=== PATIENT | male | born 1980 | race Caucasian/White ===

== ENCOUNTER 2020-03-12 08:59 | Emergency (ER) | payer SELFPAY ==
[2020-03-12 09:10] VITALS: BP 169/132; PULSE 90; RESP 18; TEMP 37; O2SAT 98; BMI 21.7
--- NOTE | 2020-03-12 09:18 | W.ED.SKABFB ---
HPI - Skin/Abscess/Foreign Bdy General: Chief complaint: Skin/Abscess/Foreign Body Stated complaint: insect bite above groin area/tenderness Time Seen by Provider: 03/12/20 09:10 History of Present Illness: HPI narrative: Patient is a 40-year-old male comes to the ED with possible abscess in groin area. Patient says it started on Thursday. Says it was a small red tender nodule that has become larger and more painful for the past couple days. Patient says he shaved his pubic hair recently. He is unsure what caused the problem. He thought it could be an ingrown hair and he was picking at it yesterday. Denies any dysuria, hematuria, penile lesions, penile discharge or STIs. Associated symptoms: Deny chills, fever(s), nausea or vomiting Review of Systems Const: Denies: fever(s), chills or fatigue Eyes: Denies: change in vision or eye discomfort ENMT: Denies: throat pain, odynophagia, nasal discharge or nasal congestion Card: Denies: chest pain, palpitations, edema, swelling of feet/ankles, dyspnea on exertion or orthopnea Resp: Denies: dyspnea, productive cough or non-productive cough GI: Denies: abdominal pain, nausea, vomiting, diarrhea, constipation or hematochezia : Denies: flank pain, difficulty urinating, dysuria or hematuria Musc: Denies: neck pain, back pain or extremity swelling Skin/Breast: Reports: new lesions; Denies: rash Neuro: Denies: headache(s), numbness in extremities or weakness in extremities Physical Exam Const: COMMON NORMALS: no acute distress, patient oriented x3 and alert GENERAL APPEARANCE: cooperative and comfortable HENMT: COMMON NORMALS: normocephalic HEAD & SCALP: normocephalic MOUTH: Normal oral and palatal mucosa present THROAT: posterior oropharynx normal and uvula midline Neck/C-Spine: COMMON NORMALS: supple GENERAL: Yes normal visual inspection Resp: COMMON NORMALS: normal respiratory effort, No retractions, No use of accessory muscles and clear to auscultation bilaterally AUSCULTATION: clear to auscultation bilaterally Cardio: COMMON NORMALS: regular rate, regular rhythm, S1 normal heart sound present, S2 normal heart sound present, No gallops present (Cardio), No clicks present (Cardio), No murmurs present (Cardio) and Peripheral pulses 2+ throughout RATE: regular rate RHYTHM: regular rhythm HEART SOUNDS: S1 normal heart sound present and S2 normal heart sound present PERIPHERAL PULSES: Peripheral pulses 2+ throughout GI: COMMON NORMALS: Normal to inspection, nondistended, normoactive bowel sounds present, Soft to palpation, non-tender and no masses PALPATION: Yes Soft to palpation : COMMON NORMALS: Yes no CVA tenderness BLADDER/KIDNEY EXAM: Yes no CVA tenderness Back/Pelvis: COMMON NORMALS: no CVA tenderness Neuro: COMMON NORMALS: patient oriented x3 and moves all extremities SENSORIUM/ORIENTATION: Yes alert Skin: LESIONS: lesion noted pelvis Lesion type: Yes nodule Lesion size (cm): 1 Lesion location: Central Lower pelvis, about 2cm superior of penis Lesion color: Yes red and Yes surrounding erythema Lesion consistency: Yes fluctuent, Yes firm and Yes indurated Lesion surface: Yes dry, Yes raised and Yes warm Lesion border: Yes surrounding erythema Lesion tenderness: Yes moderate Lesion finding consistent with: Yes other (findings consistent with abscess) Procedures Abscess I/D Site: abdomen (central Lower abdomen in pelvic region-just above penis ) Local Anesthetic: lidocaine 2% Amount of anesthesia used (mL): 10 Technique: incised with #11 blade Amount of fluid expressed (mL): 5 (Blood and purulent malodorous drainage) Packing used?: none Course Vital Signs: Vital signs: Vital Signs Temperature 98.6 F 03/12/20 09:10 Pulse Rate 90 03/12/20 09:10 Respiratory Rate 18 03/12/20 09:10 Blood Pressure 169/132 03/12/20 09:10 Pulse Oximetry 98 03/12/20 09:10 MDM - Skin/Abscess/Foreign Bdy MDM Narrative: Medical decision making narrative: Patient is a 40-year-old male who comes to the ED with an abscess in his lower pelvis. Abscess I&D was performed using local lidocaine 2% and an 11 blade. Approximately 5 mL of purulent malodorous drainage was removed. Patient was then put on a prescription for Bactrim. Patient discharged and told to follow-up with PCP in 7 to 10 days for reevaluation. Return to ED precautions given. Patient understood and agreed with plan. Discharge Plan Discharge Patient Disposition: Home Clinical Impression: Abscess Condition: Stable Prescriptions: New Bactrim DS 800-160 mg tablet 1 tab PO BID 7 Days Qty: 14 RF: 0 No Action Tylenol Extra Strength 500 mg Tablet 2,000 mg PO PRN RF: 0 Discharge Orders: Discharge ED (Routine); Ordered 03/12/20 Ordered By: Kamran Irizarry Referrals: Kamran Gillette MD [Primary Care Provider] - Discharge Diet: Regular Discharge Activity: Resume usual activity Patient Instructions: Abscess Incision and Drainage (ED), Abscess (ED) Activity Restrictions/Additional Instructions: Follow-up with medical provider as directed in 5 to 7 days for reevaluation. Take medications as prescribed. Return to the ER or your medical provider if condition worsens. Please read and understand discharge instructions. If any questions, please ask. Coding Level of Care Code ED Frame And Scrap Crusher for Thai Fwd Exam Comprehensive
[2020-03-12] MEDS: morphine 4 mg/mL SDV 1 mL IM (10:04)
[2020-03-12] MEDS: sulfamethoxazole-trimeth DS 160-800 mg Tablet 1 TAB PO (10:23)
== END 2020-03-12 10:22 | disposition home or self-care (01) ==
PROVIDERS: Emergency Provider Physician Assistant; PCP General Practice
DX: L02.818 Cutaneous abscess of other sites (principal)
CPT/HCPCS: 10060; 12345; 87070; 87075; 87077; 87186; 87205; 96372; 99281; 99283; J2270

== ENCOUNTER 2022-08-17 15:07 | Emergency (ER) | payer SELFPAY ==
--- NOTE | 2022-08-17 15:20 | XRR_ITS ---
PROCEDURE INFORMATION: Exam: XR Left Hand Exam date and time: 08/17/2022 3:36 PM Age: 42 years old Clinical indication: Injury or trauma; Other: Laceration from glass; Hand; Left; Additional info: Laceration to thumb TECHNIQUE: Imaging protocol: Radiologic exam of the left hand. Views: 3 or more views. COMPARISON: No relevant prior studies available. FINDINGS: Bones/joints: Normal. Soft tissues: No radiopaque foreign body. XR/XR hand LT min 3V* [id number] IMPRESSION: No radiopaque foreign body.
[2022-08-17 15:27] VITALS: BP 128/84; O2SAT 98
--- NOTE | 2022-08-17 15:31 | ED_ITS ---
HPI - Wound/Laceration General: Chief Complaint: Wound/Laceration Stated Complaint: Lac to Left hand Time Seen by Provider: 08/17/22 15:30 History of Present Illness: Patient is a 42-year-old male comes to the ED with laceration to left hand. Patient said laceration occurred around 9 AM this morning. He states he was taking out the trash and a piece of glass cut the dorsal aspect of hand at the base of his thumb. He said he was initially able to get the bleeding to stop but then went and took a nap. Says he woke up and there was blood everywhere and he has been unable to get the bleeding to stop since then. Patient was complaining of feeling a little dizzy. Patient is unsure of his last tetanus dose. Associated symptoms: Denies chills, fever(s), nausea or vomiting Review of Systems Const: Denies: fever(s), chills or fatigue Eyes: Denies: change in vision or eye discomfort ENMT: Denies: throat pain, odynophagia, nasal discharge or nasal congestion Card: Denies: chest pain, palpitations, edema, swelling of feet/ankles, dyspnea on exertion or orthopnea Resp: Denies: dyspnea, productive cough or non-productive cough GI: Denies: abdominal pain, nausea, vomiting, diarrhea, constipation or hematochezia : Denies: flank pain, difficulty urinating, dysuria or hematuria Musc: Denies: neck pain, back pain or extremity swelling Skin/Breast: Reports: new lesions (Laceration to left hand-dorsal aspect base of thumb); Denies: rash Neuro: Denies: headache(s), numbness in extremities or weakness in extremities [facility] ED PFSH: Medical History (Updated 08/18/22 @ 12:15 by DIMITRY Mccarthy) Cannabis use disorder, severe, dependence Generalized anxiety disorder No pertinent family history Social History (Updated 01/16/21 @ 10:51 by Raghu Abdalla LPN) Smoking and tobacco status: current every day smoker cigarettes Packs smoked per day: 1 Years cigarettes smoked: 10 Quit status (tobacco): has tried quititng Number of times tried to quit tobacco: 2 Second hand smoke exposure: No Physical Exam Const: COMMON NORMALS: no acute distress, patient oriented x3 and alert HENMT: COMMON NORMALS: normocephalic HEAD & SCALP: normocephalic MOUTH: Normal oral and palatal mucosa present THROAT: posterior oropharynx normal and uvula midline Neck/C-Spine: COMMON NORMALS: supple GENERAL: Yes normal visual inspection Resp: COMMON NORMALS: normal respiratory effort, No retractions, No use of accessory muscles and clear to auscultation bilaterally AUSCULTATION: clear to auscultation bilaterally Cardio: COMMON NORMALS: regular rate, regular rhythm, S1 normal heart sound present, S2 normal heart sound present, No gallops present (Cardio), No clicks present (Cardio), No murmurs present (Cardio) and Peripheral pulses 2+ throughout RATE: regular rate RHYTHM: regular rhythm HEART SOUNDS: S1 normal heart sound present and S2 normal heart sound present PERIPHERAL PULSES: Peripheral pulses 2+ throughout GI: COMMON NORMALS: Normal to inspection, nondistended, normoactive bowel sounds present, Soft to palpation, non-tender and no masses PALPATION: Yes Soft to palpation : COMMON NORMALS: Yes no CVA tenderness BLADDER/KIDNEY EXAM: Yes no CVA tenderness Back/Pelvis: COMMON NORMALS: no CVA tenderness Extremity: COMMON NORMALS: normal to inspection NARRATIVE EXTREMITY EXAM: Left hand?superficial 2 cm linear laceration base of left thumb on dorsal side of hand. Patient has full range of motion and strength in thumb. Actively bleeding upon exam. Wound is clean with no contaminants seen. No concern for tendon laceration at this time. Neuro: COMMON NORMALS: patient oriented x3 SENSORIUM/ORIENTATION: Yes alert GAIT: Yes Normal gait present Skin: GENERAL SKIN EXAM: dry skin Procedures Laceration Laceration 1: Site: hand (Left hand) Side (If applicable): left Size (cm): 2 Description: linear and clean Depth: simple, single layer Local Anesthetic: lidocaine 1% and with epi Amount of anesthesia used (mL): 5 Pre-repair: irrigated extensively ( with Normal saline) Skin layer closed with: nylon Size (cm): 4-0 Number of sutures: 6 Technique: simple, interrupted Course Vital Signs: Vital signs: Vital Signs Blood Pressure 115/77 08/17/22 16:57 Pulse Oximetry 98 08/17/22 16:57 Oxygen Delivery Me thod Room Air 08/17/22 15:27 MDM - Wound/Laceration Medical Decision Making Patient is a 42-year-old male comes to the ED with laceration to left hand. Patient said laceration occurred around 9 AM this morning. He states he was taking out the trash and a piece of glass cut the dorsal aspect of hand at the base of his thumb. He said he was initially able to get the bleeding to stop but then went and took a nap. Says he woke up and there was blood everywhere and he has been unable to get the bleeding to stop since then. Patient was complaining of feeling a little dizzy. Patient is unsure of his last tetanus dose. vitals stable. Left hand?superficial 2 cm linear laceration base of left thumb on dorsal side of hand. Patient has full range of motion and strength in thumb. Actively bleeding upon exam. Wound is clean with no contaminants seen. No concern for tendon laceration at this time. tetanus given today. wound irrigated with saline extensively. lidocaine 1% with epi was used as local. 6 sutures placed to close laceration. pt tolerated procedure well. CBC was unremarkable. pt dc home with prophylactic antibiotic. instructed on how to care for wound. have sutures removed in 7-10 days. pt understood and agreed with plan. Lab Data I reviewed the patient's lab results. 08/17/22 16:31 08/17/22 16:31 Radiology Impressions Hand X-Ray 08/17/22 15:20 IMPRESSION: No radiopaque foreign body. Laboratory Results WBC 9.1 10^3/uL (4.0-10.0) 08/17/22 16:31 RBC 4.25 10^6/uL (4.1-5.3) 08/17/22 16:31 Hgb 12.9 g/dL (11.7-16.6) 08/17/22 16:31 Hct 39.1 % (42.0-52.0) L 08/17/22 16:31 MCV 92.0 fl (80-94) 08/17/22 16: MCH 30.4 pg (28.0-34.0) 08/17/22 16: MCHC 33.0 g/dL (30.0-36.0) 08/17/22 16:31 RDW 13.5 % (12.1-15.1) 08/17/22 16:31 Plt Count 222 10^3/cmm (130-400) 08/17/22 16:31 MPV 10.5 fL (7.4-10.4) H 08/17/22 16:31 Neut % (Auto) 64.1 % 08/17/22 16:31 Lymph % (Auto) 24.1 % 08/17/22 16:31 Leake % (Auto) 7.0 % 08/17/22 16:31 Eos % (Auto) 4.2 % 08/17/22 16:31 Baso % (Auto) 0.3 % 08/17/22 16:31 Neut # (Auto) 5.83 10^3/uL (1.8-7.7) 08/17/22 16:31 Lymph # (Auto) 2.2 10^3/uL (0.8-4.8) 08/17/22 16:31 Leake # (Auto) 0.6 10^3/uL (0.2-0.9) 08/17/22 16:31 Eos # (Auto) 0.4 10^3/uL (0.0-0.8) 08/17/22 16:31 Baso # (Auto) 0.0 10^3/uL (0.0-0.1) 08/17/22 16:31 Nucleated RBC % (auto) 0 % 08/17/22 16:31 Nucleated RBCs # 0.0 /100WBC 08/17/22 16:31 Sodium Cancelled 08/17/22 16:31 Potassium Cancelled 08/17/22 16:31 Chloride Cancelled 08/17/22 16:31 Carbon Dioxide Cancelled 08/17/22 16:31 Anion Gap Cancelled 08/17/22 16:31 BUN Cancelled 08/17/22 16:31 Creatinine Cancelled 08/17/22 16:31 GFR Calculation Cancelled 08/17/22 16:31 Glucose Cancelled 08/17/22 16:31 Calculated Osmolality Cancelled 08/17/22 16:31 Calcium Cancelled 08/17/22 16:31 Discharge Plan Discharge Patient Disposition: Home Clinical Impression: Hand laceration Qualifiers: Encounter type: initial encounter Foreign body presence: without foreign body Laterality: left Qualified Code(s): S61.412A - Laceration without foreign body of left hand, initial encounter Condition: Stable Prescriptions: New cephalexin 500 mg capsule 500 mg PO Q6H 7 Days Qty: 28 0RF No Action propranolol 20 mg tablet 20 mg PO BID PRN (Reason: anxiety) Qty: 60 2RF fluoxetine [Prozac] 40 mg capsule 80 mg PO DAILY Qty: 60 2RF Tylenol Extra Strength 500 mg Tablet 2,000 mg PO PRN Discharge Orders: Discharge ED (Routine); Ordered 08/17/22 Ordered By: Kamran Irizarry Discharge Diet: Regular Discharge Activity: Limit activity as instructed Patient Instructions: Laceration (ED) Activity Restrictions/Additional Instructions: Take full course of antibiotics as prescribed. Clean daily with soap and water and cover with bandage. Watch for signs of infection such as redness, warmth, increased tenderness and puslike drainage. Do not submerge laceration site in any bodies of water such as [place] or lakes until wound is completely healed. If you see the signs of infection return to the ED, urgent care or PCP for reevaluation. call your PCP to schedule a follow-up appointment for reevaluation and suture removal in about 7- 10 days. Continue taking all home meds. Follow discharge plans as discussed. You can return to the ED if symptoms worsen. Coding Level of Care Code ED Pre Kindergarten Teacher for Thai Harris
[2022-08-17] MEDS: tetanus-dipt-pertussis 0.5 mL SDV IM (16:49)
[2022-08-17 16:52] LABS: Basophils % 0.3 %; Eosinophils # 0.4 10^3/uL (0.0-0.8); Eosinophils % 4.2 %; Hematocrit 39.1 % (42.0-52.0); Hemoglobin 12.9 g/dL (11.7-16.6); Lymphocytes # 2.2 10^3/uL (0.8-4.8); Lymphocytes % 24.1 %; Mean Corpuscular Hemoglobin 30.4 pg (28.0-34.0); Mean Platelet Volume 10.5 fL (7.4-10.4); Monocytes # 0.6 10^3/uL (0.2-0.9); Neutrophils # 5.83 10^3/uL (1.8-7.7); Neutrophils % 64.1 %; Nucleated Red Blood Cells % 0 %; Platelet Count 222 10^3/cmm (130-400); Red Blood Count 4.25 10^6/uL (4.1-5.3); Red Cell Distribution Width 13.5 % (12.1-15.1); White Blood Count 9.1 10^3/uL (4.0-10.0)
[2022-08-17 16:57] VITALS: BP 115/77; O2SAT 98
== END 2022-08-17 17:20 | disposition home or self-care (01) ==
PROVIDERS: Emergency Provider Physician Assistant
DX: S61.412A Laceration without foreign body of left hand, initial encounter (principal); F17.210 Nicotine dependence, cigarettes, uncomplicated; W25.XXXA Contact with sharp glass, initial encounter; Z23 Encounter for immunization
CPT/HCPCS: 12001; 73130; 85025; 90471; 90715; 99284

== ENCOUNTER 2022-09-22 09:21 | Emergency (ER) | payer OTHER, SELFPAY ==
[2022-09-22 09:39] VITALS: BP 177/104; PULSE 65; RESP 18; TEMP 36.7; O2SAT 100; BMI 31.7
--- NOTE | 2022-09-22 09:48 | PC.NURSE ---
PT LEFT RADIAL PULSE PALPABLE. SKIN TEMPERATURE EQUAL TO RIGHT UPPER EXTREMITY
--- NOTE | 2022-09-22 10:02 | XRR_ITS ---
PROCEDURE INFORMATION: Exam: XR Left Shoulder Exam date and time: 09/22/2022 10:07 AM Age: 42 years old Clinical indication: Injury or trauma; Fall; Blunt trauma (contusions or hematomas); Shoulder; Left; Injury date: 3 days ago; Additional info: Fall/trauma TECHNIQUE: Imaging protocol: Radiologic exam of the left shoulder. Views: 2 or more views. COMPARISON: No relevant prior studies available. FINDINGS: Bones/joints: Normal. Soft tissues: Normal. XR/XR shoulder LT min 2V* [id number] IMPRESSION: No acute findings.
--- NOTE | 2022-09-22 10:39 | W.ED.FALL ---
HPI - Fall General: Chief Complaint: Fall Stated Complaint: LT arm inj Time Seen by Provider: 09/22/22 09:27 Source: patient Mode of arrival: ambulatory Limitations: no limitations History of Present Illness: Patient is a 42-year-old male who presents to ED today with complaint of a left shoulder injury that started 2 days ago after he fell approximately 2 to 3 feet from a ladder directly onto the shoulder. Patient states he did not experience pain immediately and continued working/irineo. He states later that evening he began experiencing discomfort. He states pain is localized to the left shoulder joint without radicular symptoms into his arm. He has not noticed any numbness, tingling, loss of sensation, weakness to the extremity. No color/temperature changes. He denies any other injury sustained during the fall. Denies striking his head, LOC, neck or back pain. MD complaint: fall Onset (ago): day(s) Fall from: from height (distance) Fall witnessed: yes, by bystander Place fall occurred: work Loss of consciousness: None Prolonged down time: no Symptoms prior to fall: none Context: tripped/slipped Location of injury - extremities: Left: shoulder Associated symptoms-after fall: Reports no associated symptoms; Denies chest pain, headache(s) or neck pain Review of Systems Card: Denies: chest pain Resp: Denies: dyspnea Musc: Reports: joint pain (L shoulder); Denies: neck pain, back pain, extremity pain, extremity swelling, joint swelling, joint redness or joint warmth Skin/Breast: Denies: rash Neuro: Denies: headache(s), numbness in extremities, weakness in extremities or sensory changes [facility] ED PFSH: Medical History Cannabis use disorder, severe, dependence Generalized anxiety disorder No pertinent family history Social History Smoking and tobacco status: current every day smoker cigarettes Packs smoked per day: 1 Years cigarettes smoked: 10 Quit status (tobacco): has tried quititng Number of times tried to quit tobacco: 2 Second hand smoke exposure: No Physical Exam Const: COMMON NORMALS: no acute distress, average body habitus, patient oriented x3, no limitations, healthy appearing, alert and well nourished HENMT: COMMON NORMALS: normocephalic and atraumatic HEAD & SCALP: normal to inspection, normocephalic and atraumatic Neck/C-Spine: COMMON NORMALS: full ROM GENERAL: Yes normal visual inspection CERVICAL SPINE: No Cervical spine tenderness, No step off deformity and No Paracervical muscle tenderness Chest: COMMONS NORMALS: normal inspection of the chest and normal palpation of entire chest wall Resp: COMMON NORMALS: normal respiratory effort and clear to auscultation bilaterally AUSCULTATION: clear to auscultation bilaterally Cardio: COMMON NORMALS: regular rate and regular rhythm RATE: regular rate RHYTHM: regular rhythm Back/Pelvis: COMMON NORMALS: thoracic and lumbar spine normal to inspection, no thoracic nor lumbar tenderness and thoraco-lumbar ROM normal Extremity: COMMON NORMALS: normal to inspection, capillary refill normal, no joint enlargement, no clubbing, cyanosis or edema, no calf tenderness and no pedal edema GENERAL: Yes normal exam except as noted LEFT UPPER EXTREMITY: Yes shoulder joint Left shoulder joint: Yes palpation (TTP over scapula/medial scapula), Yes ROM (very mild limited ROM) and Yes neurovascular exam (normal) Neuro: COMMON NORMALS: patient oriented x3, moves all extremities, no focal motor deficits and no sensory deficits noted SENSORIUM/ORIENTATION: Yes alert Skin: COMMON NORMALS: no rashes or lesions noted GENERAL SKIN EXAM: no rashes or lesions noted Course Vital Signs: Vital signs: Vital Signs Temperature 98.1 F 09/22/22 09:39 Pulse Rate 65 09/22/22 09:39 Respiratory Rate 18 09/22/22 09:39 Blood Pressure 177/104 09/22/22 09:39 Pulse Oximetry 100 09/22/22 09:39 Oxygen Delivery Me thod Room Air 09/22/22 09:39 MDM - Fall Medical Decision Making XR negative. Will place on steroids/NSAIDS/sling for comfort. Discussed ice/heat/passive ROM. Will place referral with case mangement to get him set up with PCP if symptoms do not improve with conservative therapies. Discharge Plan Discharge Patient Disposition: Home Clinical Impression: Injury of left shoulder Qualifiers: Encounter type: initial encounter Qualified Code(s): S49.92XA - Unspecified injury of left shoulder and upper arm, initial encounter Condition: Stable Prescriptions: New diclofenac sodium 50 mg tablet,delayed release (DR/EC) 50 mg PO Q12H PRN (Reason: pain) Qty: 20 0RF Medrol (Bakari) 4 mg tablets,dose pack See Rx Instructions .ROUTE .COMPLEX Qty: 21 0RF Rx Instructions: orally per package directions Discontinued ibuprofen 200 mg Tablet 200 mg PO Q6H PRN (Reason: Pain) No Action acetaminophen [Tylenol Extra Strength] 500 mg Tablet 2,000 mg PO PRN Discharge Orders: Discharge ED (Routine); Ordered 09/22/22 Ordered By: Keira Barber Activity Restrictions/Additional Instructions: As we discussed I want you to follow-up with a primary care provider if symptoms do not seem to be improving. I have placed a referral with case management to help get you set up with one. Coding Level of Care Code ED Marriage Counselor for Thai Harris
--- NOTE | 2022-09-23 13:07 | DCPLANNER ---
Case jennifer had message to speak with patient about getting established with a primary care provider. biofuels plant manager unable to speak with patient at this time.
== END 2022-09-22 10:58 | disposition home or self-care (01) ==
PROVIDERS: Emergency Provider Physician Assistant
DX: S49.92XA Unspecified injury of left shoulder and upper arm, initial encounter (principal); F17.210 Nicotine dependence, cigarettes, uncomplicated; W11.XXXA Fall on and from ladder, initial encounter
CPT/HCPCS: 73030; 99283

== ENCOUNTER → 2023-07-16 10:59 | Outpatient (BNVA) | payer OTHER, SELFPAY | PROVIDERS: PCP Nurse Practitioner Family; Visit Provider Nurse Practitioner Family | DX: I10 Essential (primary) hypertension (principal); R53.83 Other fatigue | CPT/HCPCS: 80053; 80061; 82306; 82607; 83735; 84443; 85025 ==